=== PATIENT | male | born 1970 | race Hispanic/Latino ===

== ENCOUNTER 2022-02-24 17:06 | Emergency (ER) | payer SELFPAY ==
[2022-02-24] MEDS ORDERED: Boostrix 0.5 ML (Tdap) VIAL ONE (19:11)
[2022-02-24] MEDS ORDERED: Ketorolac Tromethamine 30 MG/ML VIAL ONE (19:11)
[2022-02-24] MEDS ORDERED: ceFAZolin 2 GM/Dextrose 50 ML IVPB ONE (19:11)
== END 2022-02-24 21:04 | disposition short-term general hospital (02) ==
LOC: CSHERS 17:06
DX: S61.032A Puncture wound without foreign body of left thumb without damage to nail, initial encounter (principal); W26.8XXA Contact with other sharp object(s), not elsewhere classified, initial encounter
CPT/HCPCS: 90471; 90715; 96365; 96375; J0690; J1885